=== PATIENT | male | born 1945 | race Caucasian/White ===

== ENCOUNTER → 2023-10-22 | Outpatient (CLI) | payer OTHER, MEDICAID | LOC: M CARPUL 10-15 14:06 | PROVIDERS: ATTEND Internal Medicine Critical Care Medicine | DX: R91.8 Other nonspecific abnormal finding of lung field (principal) ==

== ENCOUNTER → 2023-11-09 | Outpatient (CLI) | payer OTHER, MEDICAID ==
[~2023-11-09] MED LIST: ALBU8.5H INH; AMLO1TAB25 PO; BREO1INH INH; DOCU100C16 PO; ELIQ5TAB PO; IPRA0.00 NEB; METF-838 PO; METO1TAB87 PO; MONT10TA97 PO; PANT40TA29 PO; PIOG1TAB37 PO; POTA1TAB23 PO; SIMV20TA22 PO; VALS160T2 PO
== END ==
LOC: M PLARAD 09:22
PROVIDERS: ATTEND Internal Medicine Critical Care Medicine
DX: R91.8 Other nonspecific abnormal finding of lung field (principal)
CPT/HCPCS: 78815; A9552

== ENCOUNTER 2023-11-11 12:53 | Inpatient (IN) | payer OTHER, MEDICAID ==
[2023-11-11 14:52] VITALS: BP 131/68; TEMP 97.5; O2SAT 96
[2023-11-11] MEDS ORDERED: ACETAMINOPHEN TAB 650MG DOSE (2X325MG) PO PRN (14:55)
[2023-11-11] MEDS ORDERED: MAALOX 30 ML SUSP *UDC PO PRN (14:55)
[2023-11-11] MEDS ORDERED: MOM 30ML SUSPENSION UDC PO PRN (14:55)
[2023-11-11] MEDS ORDERED: HEPARIN SOD (PORCINE) 5000UNITS/ML 1ML VIAL/SYRINGE IV ONE (15:15)
[2023-11-11 15:18] LABS: BASO # 0.1 10^3/uL (0.0-0.2); BASO % 0.7 % (0.0-1.0); EOS # 0.1 10^3/uL (0.0-0.5); EOS % 0.8 % (0.0-3.0); HEMATOCRIT 37.7 % (42.0-52.0); HEMOGLOBIN 12.2 g/dl (13.5-17.5); LYMPH # 1.9 10^3/uL (1.5-5.0); LYMPH % 13.9 % (24.0-44.0); MEAN CORPUSCULAR HEMOGLOBIN 28.6 pg (27.0-33.0); MEAN CORPUSCULAR HGB CONC 32.4 g/dl (32.0-36.5); MEAN CORPUSCULAR VOLUME 88.5 fl (80.0-96.0); MONO # 1.3 10^3/uL (0.0-0.8); MONO % 9.2 % (2.0-8.0); NEUTROPHILS # 10.3 10^3/uL (1.5-8.5); NEUTROPHILS % 74.7 % (36.0-66.0); PLATELET COUNT, AUTOMATED 461 10^3/uL (150-450); RED BLOOD COUNT 4.26 10^6/uL (4.30-6.10); WHITE BLOOD COUNT 13.8 10^3/uL (4.0-10.0)
[2023-11-11 15:48] LABS: BLOOD UREA NITROGEN 28 MG/DL (9-23); CALCIUM LEVEL 8.6 MG/DL (8.3-10.6); CARBON DIOXIDE LEVEL 25 MMOL/L (20-31); CHLORIDE LEVEL 104 MMOL/L (98-107); CREATININE FOR GFR 1.05 MG/DL (0.70-1.30); GLOMERULAR FILTRATION RATE > 60.0 (>42); GLUCOSE, FASTING 193 MG/DL (74-106); POTASSIUM SERUM 4.1 MMOL/L (3.5-5.1); SODIUM LEVEL 138 MMOL/L (136-145)
[2023-11-11] MEDS ORDERED: HOME MED LIST COMPLETE! XX SCH (16:35)
[2023-11-11] MEDS: HEPARIN DRIP 25,000 UNITS in IV 1 EA IV SCH (18:23)
[2023-11-11 19:47] VITALS: BP 146/67; TEMP 98.9; O2SAT 95
[2023-11-11 21:40] LABS: INR 1.02; PROTHROMBIN TIME 13.1 SECONDS (12.5-14.5)
[2023-11-11 21:48] LABS: C REACTIVE PROTEIN QUANTITATIV 4.1 MG/DL (<1.0)
[2023-11-11] MEDS ORDERED: IPRATROPIUM 0.5MG/ALBUTEROL 2.5MG INH SOL UD 3ML (DUONEB) NEB PRN (21:55)
[2023-11-11] MEDS ORDERED: ALBUTEROL 90 MCG/ACT 8GM HFA INHALER INH PRN (21:55)
[2023-11-11 21:56] LABS: PROCALCITONIN 0.12 ng/ml
[2023-11-11] MEDS: SIMVASTATIN 20 MG TAB PO SCH (22:19)
[2023-11-11] MEDS: DOCUSATE SODIUM 100MG CAPSULE PO SCH (22:21)
[2023-11-11] MEDS: METOPROLOL TART 25 MG TABLET PO SCH (22:21)
[2023-11-12] VITALS (11 sets, daily range): BP systolic 117–190; BP diastolic 56–88; TEMP 97.5–98.8; O2SAT 92–98
[2023-11-12 07:02] LABS: BASO # 0.1 10^3/uL (0.0-0.2); BASO % 0.9 % (0.0-1.0); EOS # 0.3 10^3/uL (0.0-0.5); EOS % 1.8 % (0.0-3.0); HEMATOCRIT 34.4 % (42.0-52.0); HEMOGLOBIN 11.6 g/dl (13.5-17.5); LYMPH # 3.2 10^3/uL (1.5-5.0); LYMPH % 23.4 % (24.0-44.0); MEAN CORPUSCULAR HEMOGLOBIN 29.6 pg (27.0-33.0); MEAN CORPUSCULAR HGB CONC 33.7 g/dl (32.0-36.5); MEAN CORPUSCULAR VOLUME 87.8 fl (80.0-96.0); MONO # 1.6 10^3/uL (0.0-0.8); MONO % 11.2 % (2.0-8.0); NEUTROPHILS # 8.6 10^3/uL (1.5-8.5); PLATELET COUNT, AUTOMATED 430 10^3/uL (150-450); RED BLOOD COUNT 3.92 10^6/uL (4.30-6.10); WHITE BLOOD COUNT 13.8 10^3/uL (4.0-10.0)
[2023-11-12 07:33] LABS: BLOOD UREA NITROGEN 24 MG/DL (9-23); CALCIUM LEVEL 8.2 MG/DL (8.3-10.6); CARBON DIOXIDE LEVEL 26 MMOL/L (20-31); CHLORIDE LEVEL 103 MMOL/L (98-107); CREATININE FOR GFR 0.91 MG/DL (0.70-1.30); GLOMERULAR FILTRATION RATE > 60.0 (>42); GLUCOSE, FASTING 122 MG/DL (74-106); MAGNESIUM LEVEL 1.8 MG/DL (1.8-2.4); POTASSIUM SERUM 3.8 MMOL/L (3.5-5.1); SODIUM LEVEL 137 MMOL/L (136-145)
[2023-11-12] MEDS: SYMBICORT 160/4.5MCG INHALER 6GM INH SCH (08:57)
[2023-11-12] MEDS ORDERED: oxyCODONE 5MG TAB PO PRN (12:05)
[2023-11-12] MEDS ORDERED: fentaNYL 100 MCG/2 ML INJECTION IV PRN (12:05)
[2023-11-12] MEDS: PANTOPRAZOLE 40MG TAB (PROTONIX) PO SCH (13:24)
[2023-11-12] MEDS ORDERED: DEXTROSE 50% 50ML SYRINGE IV PRN (18:00)
[2023-11-12] MEDS ORDERED: GLUCOSE 4GM CHEW TABLET PO PRN (18:00)
[2023-11-12] MEDS ORDERED: GLUCAGON INJ 1MG VIAL SC PRN (18:00)
[2023-11-12] MEDS: INSULIN LISPRO (NovoLOG) PER UNIT SC SCH (20:34)
[2023-11-12] MEDS: HEPARIN SOD (PORCINE) 5000UNITS/ML 1ML VIAL/SYRINGE IV PRN (21:59)
[2023-11-13 03:45] VITALS: BP 153/69; TEMP 97.8; O2SAT 95
[2023-11-13 04:22] LABS: BASO % 0.2 % (0.0-1.0); EOS % 0.2 % (0.0-3.0); HEMOGLOBIN 10.8 g/dl (13.5-17.5); LYMPH # 2.4 10^3/uL (1.5-5.0); LYMPH % 13.8 % (24.0-44.0); MEAN CORPUSCULAR HEMOGLOBIN 29.9 pg (27.0-33.0); MEAN CORPUSCULAR HGB CONC 33.8 g/dl (32.0-36.5); MEAN CORPUSCULAR VOLUME 88.6 fl (80.0-96.0); MONO # 1.9 10^3/uL (0.0-0.8); MONO % 10.5 % (2.0-8.0); NEUTROPHILS # 13.1 10^3/uL (1.5-8.5); NEUTROPHILS % 74.5 % (36.0-66.0); PLATELET COUNT, AUTOMATED 423 10^3/uL (150-450); RED BLOOD COUNT 3.61 10^6/uL (4.30-6.10); WHITE BLOOD COUNT 17.6 10^3/uL (4.0-10.0)
[2023-11-13 04:54] LABS: BLOOD UREA NITROGEN 22 MG/DL (9-23); CALCIUM LEVEL 7.7 MG/DL (8.3-10.6); CARBON DIOXIDE LEVEL 26 MMOL/L (20-31); CHLORIDE LEVEL 105 MMOL/L (98-107); CREATININE FOR GFR 0.94 MG/DL (0.70-1.30); GLOMERULAR FILTRATION RATE > 60.0 (>42); GLUCOSE, FASTING 158 MG/DL (74-106); MAGNESIUM LEVEL 1.8 MG/DL (1.8-2.4); POTASSIUM SERUM 3.9 MMOL/L (3.5-5.1); SODIUM LEVEL 135 MMOL/L (136-145)
[2023-11-13] MEDS: INSULIN LISPRO (NovoLOG) PER UNIT SC SCH (07:30)
[2023-11-13 07:49] VITALS: BP 158/80; TEMP 97.5; O2SAT 95
[2023-11-13 09:19] VITALS: BP 158/80
== END 2023-11-13 13:26 | disposition home or self-care (01) | DRG 167 ==
LOC: M PCU 14:35 → OBSVTOIN 14:35
PROVIDERS: ADMIT Internal Medicine; ATTEND Student in an Organized Health Care Education/Training Program
PROC: 0BBD8ZX Excision of Right Middle Lung Lobe, Via Natural or Artificial Opening Endoscopic, Diagnostic (ICD-10-PCS; principal; 2023-11-12 09:15)
DX: C34.2 Malignant neoplasm of middle lobe, bronchus or lung (principal); I50.32 Chronic diastolic (congestive) heart failure; I11.0 Hypertensive heart disease with heart failure; J45.909 Unspecified asthma, uncomplicated; E11.51 Type 2 diabetes mellitus with diabetic peripheral angiopathy without gangrene; J44.9 Chronic obstructive pulmonary disease, unspecified; E78.5 Hyperlipidemia, unspecified; I25.10 Atherosclerotic heart disease of native coronary artery without angina pectoris; K21.9 Gastro-esophageal reflux disease without esophagitis; F17.210 Nicotine dependence, cigarettes, uncomplicated; D72.829 Elevated white blood cell count, unspecified; Z79.01 Long term (current) use of anticoagulants; Z86.711 Personal history of pulmonary embolism; Z86.16 Personal history of COVID-19; Z79.899 Other long term (current) drug therapy

== ENCOUNTER → 2023-12-03 | Outpatient (CLI) | payer OTHER, MEDICAID ==
[~2023-12-03] MED LIST changes: +ELIQ5TAB; +ONDA-84 PO
== END ==
LOC: M ONCR 13:22
PROVIDERS: ATTEND General Practice
DX: C34.2 Malignant neoplasm of middle lobe, bronchus or lung (principal); Z71.2 Person consulting for explanation of examination or test findings; Z79.01 Long term (current) use of anticoagulants; Z79.84 Long term (current) use of oral hypoglycemic drugs; Z79.899 Other long term (current) drug therapy; Z80.0 Family history of malignant neoplasm of digestive organs; Z80.3 Family history of malignant neoplasm of breast; Z87.891 Personal history of nicotine dependence

== ENCOUNTER → 2023-12-11 | Outpatient (CLI) | payer OTHER, MEDICAID ==
[~2023-12-11] VITALS: Ht 170.2 cm; Wt 80.0 kg
[~2023-12-11] MED LIST changes: +ASPI-655 PO; +ASPI81CH8 PO; +ATOR1TAB21 PO; +ATOR80TA59 PO; +IPRA0.00 IN; +LIDOCAINE W/EPINEPHRINE 1% 20ML VIAL As Ordered ONE; +MIDAZOLAM INJ 2MG/2ML VIAL As Ordered ONE; +ceFAZolin SOD 2 GM in IV 1 EA IV ONE; +fentaNYL 100 MCG/2 ML INJECTION As Ordered ONE
[2023-12-11 14:55] VITALS: BP 168/69; O2SAT 95
== END ==
LOC: M IRPRO 12:33
PROVIDERS: ATTEND Internal Medicine Hematology & Oncology
DX: C34.90 Malignant neoplasm of unspecified part of unspecified bronchus or lung (principal)
CPT/HCPCS: 36561; J2250; J3010

== ENCOUNTER 2023-12-14 16:40 | Observation (INO) | payer OTHER, MEDICAID ==
[~2023-12-14] VITALS: Ht 170.2 cm; Wt 77.3 kg
[~2023-12-14 16:40] MED LIST changes: -ASPI-655 PO; -ASPI81CH8 PO; -ATOR1TAB21 PO; -ATOR80TA59 PO; -IPRA0.00 IN; -PROHANCE 279.3MG/ML 15ML VIAL As Ordered ONE; -PROHANCE 279.3MG/ML 5ML VIAL As Ordered ONE
[2023-12-14] MEDS ORDERED: ISOVUE-370 76% 100ML VIAL As Ordered ONE (17:58)
[2023-12-14 18:00] LABS: BASO # 0.1 10^3/uL (0.0-0.2); BASO % 0.7 % (0.0-1.0); EOS # 0.1 10^3/uL (0.0-0.5); EOS % 0.5 % (0.0-3.0); HEMATOCRIT 31.4 % (42.0-52.0); HEMOGLOBIN 10.3 g/dl (13.5-17.5); LYMPH # 1.3 10^3/uL (1.5-5.0); MEAN CORPUSCULAR HEMOGLOBIN 29.3 pg (27.0-33.0); MEAN CORPUSCULAR HGB CONC 32.8 g/dl (32.0-36.5); MEAN CORPUSCULAR VOLUME 89.2 fl (80.0-96.0); MONO # 1.2 10^3/uL (0.0-0.8); MONO % 11.6 % (2.0-8.0); NEUTROPHILS # 7.7 10^3/uL (1.5-8.5); NEUTROPHILS % 74.3 % (36.0-66.0); PLATELET COUNT, AUTOMATED 393 10^3/uL (150-450); RED BLOOD COUNT 3.52 10^6/uL (4.30-6.10); WHITE BLOOD COUNT 10.4 10^3/uL (4.0-10.0)
[2023-12-14 18:22] LABS: INR 1.04; PARTIAL THROMBOPLASTIN TIME 32.9 SECONDS (24.8-34.2); PROTHROMBIN TIME 13.3 SECONDS (12.5-14.5)
[2023-12-14 18:29] LABS: BLOOD UREA NITROGEN 24 MG/DL (9-23); CALCIUM LEVEL 8.4 MG/DL (8.3-10.6); CARBON DIOXIDE LEVEL 26 MMOL/L (20-31); CHLORIDE LEVEL 104 MMOL/L (98-107); CREATININE FOR GFR 1.02 MG/DL (0.70-1.30); GLOMERULAR FILTRATION RATE > 60.0 (>42); GLUCOSE, FASTING 127 MG/DL (74-106); POTASSIUM SERUM 4.1 MMOL/L (3.5-5.1); SODIUM LEVEL 138 MMOL/L (136-145)
[2023-12-14] MEDS: IPRATROPIUM 0.5MG/ALBUTEROL 2.5MG INH SOL UD 3ML (DUONEB) NEB SCH (20:00)
[2023-12-14] MEDS: ATORVASTATIN 20 MG TAB PO SCH (21:00)
[2023-12-14] MEDS: APIXABAN 5 MG TAB (ELIQUIS) PO SCH (21:00)
[2023-12-14] MEDS ORDERED: IPRA0.00 IN (21:45)
[2023-12-14] MEDS ORDERED: ONDA-84 PO (21:45)
[2023-12-14] MEDS ORDERED: HOME MED LIST COMPLETE! XX SCH (21:50)
[2023-12-14] MEDS ORDERED: ALBUTEROL SULFATE 2.5MG/0.5ML INH NEB SOLN NEB PRN (21:55)
[2023-12-14] MEDS: NS 1,000 ML IV SCH (22:52)
[2023-12-14] MEDS: ASPIRIN 81MG CHEW TABLET PO ONE (22:52)
[2023-12-15 06:50] LABS: CHOLESTEROL RISK RATIO 5.15 (<5); HDL CHOLESTEROL 38.8 MG/DL (>40); LDL CHOLESTEROL 117.4 MG/DL (<100); NON-HDL-C 161.2 MG/DL
[2023-12-15] MEDS ORDERED: GLUCAGON INJ 1MG VIAL SC PRN (06:50)
[2023-12-15] MEDS ORDERED: ALBUTEROL 90 MCG/ACT 8GM HFA INHALER INH PRN (06:50)
[2023-12-15] MEDS ORDERED: GLUCOSE 4GM CHEW TABLET PO PRN (06:50)
[2023-12-15] MEDS ORDERED: DEXTROSE 50% 50ML SYRINGE IV PRN (06:50)
[2023-12-15 08:12] VITALS: BP 157/70; TEMP 97.4; O2SAT 98
[2023-12-15] MEDS: ASPIRIN 81MG CHEW TABLET PO SCH (09:42)
[2023-12-15] MEDS: INSULIN LISPRO (NovoLOG) PER UNIT SC SCH (09:42)
[2023-12-15] MEDS: MONTELUKAST 10 MG TAB PO SCH (09:42)
[2023-12-15] MEDS: PANTOPRAZOLE 40MG TAB (PROTONIX) PO SCH (09:42)
[2023-12-15] MEDS: METOPROLOL TART 25 MG TABLET PO SCH (09:44)
[2023-12-15 13:19] VITALS: BP 160/74; TEMP 97.8; O2SAT 98
[2023-12-15] MEDS ORDERED: ATOR1TAB21 PO (14:55)
[2023-12-15] MEDS ORDERED: ASPI81CH8 PO (14:55)
[2023-12-15] MEDS: VALSARTAN 80 MG TAB (DIOVAN) PO ONE (15:07)
[2023-12-15] MEDS: ADVAIR HFA 115/21MCG INHALER INH SCH (15:08)
[2023-12-15 15:45] VITALS: BP 174/58
[2023-12-15] MEDS: hydrALAZINE 20MG/ML 1ML VIAL IV ONE (15:45)
[2023-12-15 16:08] VITALS: BP 132/50
[2023-12-15] MEDS ORDERED: INSULIN LISPRO (NovoLOG) PER UNIT SC SCH (21:00)
[2023-12-15] MEDS ORDERED: DOCUSATE SODIUM 100MG CAPSULE PO SCH (21:00)
[2023-12-16] MEDS ORDERED: ASPI-655 PO (01:00)
[2023-12-16] MEDS ORDERED: ATOR80TA59 PO (01:00)
== END 2023-12-15 16:20 | disposition home or self-care (01) ==
LOC: M ED 16:40 → M ED INP 21:51 → M ICU 12-15 08:23
PROVIDERS: ADMIT Internal Medicine; ATTEND Internal Medicine
DX: I63.331 Cerebral infarction due to thrombosis of right posterior cerebral artery (principal); R47.01 Aphasia; R91.8 Other nonspecific abnormal finding of lung field; C34.90 Malignant neoplasm of unspecified part of unspecified bronchus or lung; I26.99 Other pulmonary embolism without acute cor pulmonale; I10 Essential (primary) hypertension; E11.9 Type 2 diabetes mellitus without complications; J45.909 Unspecified asthma, uncomplicated; K21.9 Gastro-esophageal reflux disease without esophagitis; Z79.01 Long term (current) use of anticoagulants; Z79.82 Long term (current) use of aspirin; Z79.84 Long term (current) use of oral hypoglycemic drugs; Z79.899 Other long term (current) drug therapy
CPT/HCPCS: 36415; 70496; 70498; 70553; 71045; 80047; 80048; 80061; 85025; 85610; 85730; 87486; 87581; 87633; 87798; 92610; 93005; 93041; 93306; 94640; 94760; 96361; 96374; 97116; 97161; 97165; 97530; 99285; A9576; G0378; J0360; J1815; Q9967

== ENCOUNTER → 2023-12-14 | Outpatient (CLI) | payer OTHER, MEDICAID ==
[~2023-12-14] MED LIST changes: -LIDOCAINE W/EPINEPHRINE 1% 20ML VIAL As Ordered ONE; -MIDAZOLAM INJ 2MG/2ML VIAL As Ordered ONE; +PROHANCE 279.3MG/ML 15ML VIAL As Ordered ONE; +PROHANCE 279.3MG/ML 5ML VIAL As Ordered ONE; -ceFAZolin SOD 2 GM in IV 1 EA IV ONE; -fentaNYL 100 MCG/2 ML INJECTION As Ordered ONE
== END ==
LOC: M RAD 14:58
PROVIDERS: ATTEND Internal Medicine Hematology & Oncology
DX: R91.8 Other nonspecific abnormal finding of lung field (principal); C34.90 Malignant neoplasm of unspecified part of unspecified bronchus or lung
CPT/HCPCS: 70553; A9576

== ENCOUNTER 2023-12-15 18:59 | Observation (INO) | payer OTHER, MEDICAID ==
[~2023-12-15] VITALS: Ht 170.2 cm; Wt 110.0 kg
[~2023-12-15 18:59] MED LIST changes: -ASPI-655 PO; -ATOR80TA59 PO
[2023-12-15 19:56] VITALS: BP 161/75; TEMP 97; O2SAT 98
[2023-12-15 19:58] LABS: BASO # 0.1 10^3/uL (0.0-0.2); BASO % 0.6 % (0.0-1.0); EOS % 0.3 % (0.0-3.0); HEMATOCRIT 34.2 % (42.0-52.0); HEMOGLOBIN 11.1 g/dl (13.5-17.5); LYMPH # 1.7 10^3/uL (1.5-5.0); LYMPH % 12.1 % (24.0-44.0); MEAN CORPUSCULAR HEMOGLOBIN 28.7 pg (27.0-33.0); MEAN CORPUSCULAR HGB CONC 32.5 g/dl (32.0-36.5); MEAN CORPUSCULAR VOLUME 88.4 fl (80.0-96.0); MONO # 1.3 10^3/uL (0.0-0.8); MONO % 9.1 % (2.0-8.0); NEUTROPHILS # 10.6 10^3/uL (1.5-8.5); PLATELET COUNT, AUTOMATED 492 10^3/uL (150-450); RED BLOOD COUNT 3.87 10^6/uL (4.30-6.10); WHITE BLOOD COUNT 13.7 10^3/uL (4.0-10.0)
[2023-12-15] MEDS: NS 1,000 ML IV ONE (19:59)
[2023-12-15 20:16] LABS: INR 1.2; PARTIAL THROMBOPLASTIN TIME 38.5 SECONDS (24.8-34.2); PROTHROMBIN TIME 14.8 SECONDS (12.5-14.5)
[2023-12-15 20:20] LABS: CK-MB VALUE MASS < 1.0 NG/ML (<3.6); CPK CREATINE PHOSPHOKINASE 28 U/L (46-171); MB/CK RELATIVE INDEX 3.57 (< OR =4)
[2023-12-15 21:13] LABS: CK-MB VALUE MASS < 1.0 NG/ML (<3.6)
[2023-12-15 21:16] LABS: CPK CREATINE PHOSPHOKINASE 30 U/L (46-171); MB/CK RELATIVE INDEX 3.33 (< OR =4)
[2023-12-15 21:36] LABS: BLOOD UREA NITROGEN 22 MG/DL (9-23); CARBON DIOXIDE LEVEL 24 MMOL/L (20-31); CHLORIDE LEVEL 103 MMOL/L (98-107); CREATININE FOR GFR 0.96 MG/DL (0.70-1.30); GLOMERULAR FILTRATION RATE > 60.0 (>42); GLUCOSE, FASTING 151 MG/DL (74-106); POTASSIUM SERUM 4.1 MMOL/L (3.5-5.1); SODIUM LEVEL 136 MMOL/L (136-145)
[2023-12-16] MEDS ORDERED: DEXTROSE 50% 50ML SYRINGE IV PRN (00:40)
[2023-12-16] MEDS ORDERED: GLUCAGON INJ 1MG VIAL SC PRN (00:40)
[2023-12-16] MEDS ORDERED: GLUCOSE 4GM CHEW TABLET PO PRN (00:40)
[2023-12-16] MEDS ORDERED: ALBUTEROL 90 MCG/ACT 8GM HFA INHALER INH PRN (00:45)
[2023-12-16] MEDS ORDERED: ONDANSETRON 4MG TAB PO PRN (00:45)
[2023-12-16] MEDS ORDERED: ASPI-655 PO (01:00)
[2023-12-16] MEDS ORDERED: ATOR80TA59 PO (01:00)
[2023-12-16] MEDS ORDERED: HOME MED LIST COMPLETE! XX SCH (01:00)
[2023-12-16] MEDS: APIXABAN 5 MG TAB (ELIQUIS) PO SCH (01:34)
[2023-12-16] MEDS: METOPROLOL TART 25 MG TABLET PO SCH (01:34)
[2023-12-16] MEDS: ASPIRIN 81MG CHEW TABLET PO SCH (09:36)
[2023-12-16] MEDS: MONTELUKAST 10 MG TAB PO SCH (09:36)
[2023-12-16] MEDS: PANTOPRAZOLE 40MG TAB (PROTONIX) PO SCH (09:36)
[2023-12-16 09:37] VITALS: BP 176/77
[2023-12-16] MEDS: hydroCHLOROthiazide 12.5 MG CAPSULE PO SCH (09:37)
[2023-12-16] MEDS: POTASSIUM CHLORIDE 10MEQ SR TABLET PO SCH (09:37)
[2023-12-16] MEDS: VALSARTAN 80 MG TAB (DIOVAN) PO SCH (09:37)
[2023-12-16] MEDS: INSULIN LISPRO (NovoLOG) PER UNIT SC SCH (09:38)
[2023-12-16 11:59] VITALS: BP 165/75; TEMP 97.9; O2SAT 97
[2023-12-16 12:45] LABS: PROCALCITONIN 0.08 ng/ml
[2023-12-16] MEDS ORDERED: ONDANSETRON 4MG ORAL DISINTEGRATING TAB PO PRN (14:35)
[2023-12-16] MEDS ORDERED: SCOPOLAMINE 1MG TRANSDERMAL PATCH TOP PRN (14:35)
[2023-12-16] MEDS ORDERED: LORazepam 2 MG/ML 1ML VIAL IV PRN (14:35)
[2023-12-16] MEDS ORDERED: FLEET ENEMA PR PRN (14:35)
[2023-12-16] MEDS ORDERED: LORazepam 1 MG TAB PO PRN (14:35)
[2023-12-16] MEDS ORDERED: MORPHINE 2 MG/ML 1ML VIAL IV PRN (14:35)
[2023-12-16] MEDS ORDERED: ATROPINE SULFATE 1% OPHTH SOLN 2ML BTL SL PRN (14:35)
[2023-12-16] MEDS ORDERED: MORPHINE 10MG/0.5ML ORAL CONCENTRATE SOLUTION U/D SL PRN (14:35)
[2023-12-16] MEDS ORDERED: BISACODYL 10MG SUPP PR PRN (14:35)
[2023-12-16] MEDS ORDERED: HYOSCYAMINE SULFATE 0.125 MG SUBL TABLET PO PRN (14:35)
[2023-12-16] MEDS ORDERED: ACETAMINOPHEN 650MG SUPP PR PRN (14:35)
[2023-12-16] MEDS ORDERED: DOCUSATE SODIUM 100MG CAPSULE PO SCH (21:00)
[2023-12-16] MEDS ORDERED: ATORVASTATIN 20 MG TAB PO SCH (21:00)
[2023-12-16] MEDS ORDERED: INSULIN LISPRO (NovoLOG) PER UNIT SC SCH (21:00)
== END 2023-12-17 16:04 | disposition home or self-care (01) ==
LOC: EDBD 18:59 → M ED 18:59 → M ED INP 19:00 → M MS4PR 12-16 12:19
PROVIDERS: ADMIT Preventive Medicine Undersea and Hyperbaric Medicine; ATTEND Preventive Medicine Undersea and Hyperbaric Medicine
DX: G45.9 Transient cerebral ischemic attack, unspecified (principal); D72.829 Elevated white blood cell count, unspecified; I10 Essential (primary) hypertension; Z79.01 Long term (current) use of anticoagulants; J45.909 Unspecified asthma, uncomplicated; Z79.82 Long term (current) use of aspirin; Z87.891 Personal history of nicotine dependence; Z85.118 Personal history of other malignant neoplasm of bronchus and lung; I65.23 Occlusion and stenosis of bilateral carotid arteries; Z79.899 Other long term (current) drug therapy; E11.9 Type 2 diabetes mellitus without complications; Z86.73 Personal history of transient ischemic attack (TIA), and cerebral infarction without residual deficits; Z86.711 Personal history of pulmonary embolism
CPT/HCPCS: 36415; 70450; 70551; 71045; 80048; 82550; 82553; 84145; 84484; 85025; 85610; 85730; 86140; 87040; 87486; 87581; 87633; 87798; 93005; 93041; 94760; 96374; 99285; G0378; J1815

== ENCOUNTER → 2023-12-15 | Outpatient (CLI) | payer OTHER, MEDICAID ==
[~2023-12-15] MED LIST changes: +ASPI-655 PO; +ASPI81CH8 PO; +ATOR1TAB21 PO; +ATOR80TA59 PO; +IPRA0.00 IN
== END ==
LOC: M EKG 16:28
PROVIDERS: ATTEND Internal Medicine
DX: I67.9 Cerebrovascular disease, unspecified (principal)